=== PATIENT | male | born 1960 | race African-American/Black ===

== ENCOUNTER 2018-10-24 23:11 | Emergency (ER) | payer OTHER ==
[~2018-10-24] VITALS: Ht 180.3 cm; Wt 149.7 kg
[2018-10-25 00:39] VITALS: BP 147/96
== END 2018-10-25 00:49 | disposition home or self-care (01) ==
LOC: ER 23:11
DX: S92.311A Displaced fracture of first metatarsal bone, right foot, initial encounter for closed fracture (principal); M25.561 Pain in right knee; M54.5 Low back pain; G89.29 Other chronic pain; I10 Essential (primary) hypertension; Z96.642 Presence of left artificial hip joint; V49.9XXA Car occupant (driver) (passenger) injured in unspecified traffic accident, initial encounter; Y93.I9 Activity, other involving external motion; Y92.410 Unspecified street and highway as the place of occurrence of the external cause; Y99.8 Other external cause status

== ENCOUNTER 2020-12-09 06:03 | Emergency (ER) | payer BC ==
[~2020-12-09] VITALS: Ht 180.3 cm; Wt 154.2 kg
[2020-12-09] MEDS ORDERED: CYCLOBENZAPRINE5 MG PO (08:00)
[2020-12-09] MEDS ORDERED: LIDODERM1 EACH TOP (08:00)
[2020-12-09] MEDS ORDERED: IBU600 MG PO (08:00)
[2020-12-09 08:01] VITALS: BP 135/80
== END 2020-12-09 08:01 | disposition home or self-care (01) ==
LOC: ER 06:03
DX: M25.461 Effusion, right knee (principal); M54.5 Low back pain; I10 Essential (primary) hypertension; M54.9 Dorsalgia, unspecified; Z72.89 Other problems related to lifestyle; V89.2XXA Person injured in unspecified motor-vehicle accident, traffic, initial encounter; Y93.19 Activity, other involving water and watercraft; Y92.89 Other specified places as the place of occurrence of the external cause; Y99.8 Other external cause status